=== PATIENT | female | born 1980 | race Caucasian/White ===

== ENCOUNTER 2024-02-01 22:51 | Emergency (ER) | payer BC ==
[2024-02-01] MEDS ORDERED: diphenhydrAMINE 50 MG/ML VIAL ONE (23:43)
[2024-02-01] MEDS ORDERED: Dexamethasone 10 MG/ML VIAL ONE (23:43)
[2024-02-01 23:54] LABS: #Basophils 0.04 10x3/uL (0.0-0.2); %Basophils 0.4 % (0.0-1.0); %Eosinophils 6.3 % (0.0-10.0); %Lymphocytes 17.3 % (21.0-51.0); %Monocytes 6.4 % (0.0-10.0); %Neutrophils 69.3 % (42.0-75.0); Hematocrit 40.7 % (36.0-47.0); Hemoglobin 13.7 g/dL (12.0-16.0); Mean Corpuscular HGB CONC 33.7 g/dL (32.0-36.0); Mean Corpuscular Volume 89.3 fL (78.0-98.0); Mean Platelet Volume 10.7 fL (7.4-10.4); Platelet Count 272 10x3/uL (130-400); RBC Distribution Width 12.7 % (11.5-14.5); Red Blood Cell (RBC) Count 4.56 mill/uL (4.20-5.40)
[2024-02-02 00:07] LABS: BHCG - Serum Negative (NEGATIVE); Pregs Control Background? CLEAR/WHITE (CLR/WHITE); Pregs Control Bar Appear? YES (CONTROL BAR)
[2024-02-02 00:18] LABS: ALT (SGPT) 18 U/L (8-55); AST (SGOT) 14 U/L (5-34); Albumin 3.8 g/dL (3.5-5.0); Alkaline Phosphatase 96 U/L (40-110); Anion Gap 15 mmol/L (10-20); BUN (Urea Nitrogen) 9 mg/dL (7.0-18.7); Bilirubin, Total 0.3 mg/dL (0.2-1.2); Calc. Creatinine Clearance 0 mL/min (70-130); Calcium 9.2 mg/dL (7.8-10.44); Carbon Dioxide 21 mmol/L (22-29); Chloride 106 mmol/L (98-107); Estimated GFR 84; Globulin 3.7 g/dL (2.4-3.5); Glucose 94 mg/dL (70-105); Potassium 3.9 mmol/L (3.5-5.1); Protein, Total 7.5 g/dL (6.0-8.3); Sodium 138 mmol/L (136-145)
[2024-02-02 10:52] LABS: Syphilis Antibody Nonreactive (Nonreactive); Syphilis Antibody Index 0.13 S/CO (<1.00 Non-Reactive)
== END 2024-02-02 00:39 | disposition home or self-care (01) ==
LOC: ERS 22:51
DX: R21 Rash and other nonspecific skin eruption (principal)
CPT/HCPCS: 36415; 80053; 84703; 85025; 86780; 96372; 99283; J1100; J1200